=== PATIENT | female | born 1985 | race Caucasian/White ===

== ENCOUNTER → 2017-07-06 | Outpatient (CLI) | payer OTHER ==
[2017-07-06 11:03] LABS: URINE APPEARANCE CLEAR (CLEAR); URINE BILIRUBIN NEG (NEG); URINE COLOR YELLOW; URINE NITRITE NEG (NEG); URINE SPECIFIC GRAVITY 1.015 (1.000-1.030); UROBILINOGEN NEG (NEG)
[2017-07-06 11:09] LABS: MANUAL MICROSCOPIC REQUIRED? NO; REVIEW REQ? NO
== END | disposition home or self-care (01) ==
LOC: C.LABSPEC 10:48
PROVIDERS: ATTEND Obstetrics & Gynecology
DX: O09.521 Supervision of elderly multigravida, first trimester (principal); Z3A.00 Weeks of gestation of pregnancy not specified

== ENCOUNTER → 2017-07-11 | Outpatient (CLI) | payer OTHER | LOC: C.PAPS 16:20 | PROVIDERS: ATTEND Obstetrics & Gynecology | DX: O09.521 Supervision of elderly multigravida, first trimester (principal); Z3A.00 Weeks of gestation of pregnancy not specified ==

== ENCOUNTER → 2017-07-11 | Outpatient (CLI) | payer OTHER ==
[2017-07-14 01:39] LABS: CHLAMYDIA TRACH RNA*** NOT DETECTED (NOT DETECTED); GC (NEIS GONORRHOEAE)RNA** NOT DETECTED (NOT DETECTED)
== END ==
LOC: C.LABSPEC 15:57
PROVIDERS: ATTEND Obstetrics & Gynecology
DX: O09.521 Supervision of elderly multigravida, first trimester (principal); Z3A.00 Weeks of gestation of pregnancy not specified

== ENCOUNTER → 2017-07-13 | Outpatient (CLI) | payer OTHER ==
[2017-07-13 15:27] LABS: BASO % 0.3 %; BASO ABS # 0.03 K/uL (0-0.2); COMPLETE YES; EOS % 0.6 %; HEMATOCRIT 36.6 % (37-47); IG% 0.2 %; LYMPH % 17.7 %; LYMPH ABS # 1.75 K/uL (1.2-3.4); MEAN CELL VOLUME 91.3 fL (80-100); MEAN CORPUSCULAR HEMOGLOBIN 31.4 pg (25-34); MEAN CORPUSCULAR HGB CONC 34.4 g/dl (32-36); MEAN PLATELET VOLUME 12.1 fL (7.4-10.4); MONO % 7.9 %; NEUT % 73.3 %; PLATELET COUNT 211 K/uL (130-400); RED BLOOD COUNT 4.01 M/uL (4.2-5.4)
== END | disposition home or self-care (01) ==
LOC: C.LAB1850 14:28
PROVIDERS: ATTEND Obstetrics & Gynecology
DX: O09.521 Supervision of elderly multigravida, first trimester (principal); Z3A.00 Weeks of gestation of pregnancy not specified

== ENCOUNTER → 2017-09-07 | Outpatient (CLI) | payer OTHER ==
[2017-09-07 13:47] LABS: GTGD 50 Grams
== END | disposition home or self-care (01) ==
LOC: C.LAB1850 12:02
PROVIDERS: ATTEND Obstetrics & Gynecology
DX: O09.522 Supervision of elderly multigravida, second trimester (principal)

== ENCOUNTER → 2017-11-29 | Outpatient (CLI) | payer OTHER ==
[2017-11-29 12:21] LABS: HEMATOCRIT 32.2 % (37-47); HEMOGLOBIN 10.5 g/dL (12.0-16.0)
== END | disposition home or self-care (01) ==
LOC: C.LAB1850 09:55
PROVIDERS: ATTEND Obstetrics & Gynecology
DX: Z34.83 Encounter for supervision of other normal pregnancy, third trimester (principal)

== ENCOUNTER 2018-01-23 19:21 | Outpatient (CLI) | payer OTHER ==
[~2018-01-23] VITALS: Ht 162.6 cm; Wt 89.0 kg
[2018-01-23 20:34] VITALS: Ht 162.6 cm; Wt 89.0 kg
== END 2018-01-23 21:01 | disposition home or self-care (01) ==
LOC: C.OPB 19:21 → C.LD 19:21 → C.OPB 21:01
PROVIDERS: ATTEND Obstetrics & Gynecology
DX: O09.523 Supervision of elderly multigravida, third trimester (principal); Z3A.36 36 weeks gestation of pregnancy

== ENCOUNTER 2018-01-28 10:03 | Outpatient (CLI) | payer OTHER | END 2018-01-28 11:18 | disposition home or self-care (01) | LOC: C.OPB 10:03 → C.LD 10:04 → C.OPB 11:18 | PROVIDERS: ATTEND Obstetrics & Gynecology | DX: O36.8130 Decreased fetal movements, third trimester, not applicable or unspecified (principal); Z3A.37 37 weeks gestation of pregnancy ==

== ENCOUNTER 2018-02-07 22:13 | Inpatient (IN) | payer OTHER ==
[~2018-02-07] VITALS: Ht 160 cm; Wt 92.7 kg
[2018-02-07] MEDS ORDERED: LACTATED RINGER'S 1000ML 1,000 ML IV SCH (22:49)
[2018-02-07] MEDS ORDERED: LACTATED RINGER'S 1000ML 1,000 ML IV PRN (22:49)
[2018-02-07] MEDS ORDERED: EpHEDrine SULFATE INJ 50 MG/ML AMP ONE (23:14)
[2018-02-07] MEDS ORDERED: BUPIVACAINE 0.25% 30 ML VIAL ONE (23:14)
[2018-02-07] MEDS ORDERED: FENTANYL CITRATE INJ 50 MCG/1 ML 2 ML VIAL ONE ×2 (23:15→23:50)
[2018-02-07] MEDS ORDERED: FENTANYL 2MCG/ML ROPIV 1.25MG/ML 100ML BAG ONE (23:15)
[2018-02-07 23:27] LABS: HEMATOCRIT 29.8 % (37-47); HEMOGLOBIN 9.8 g/dL (12.0-16.0); MEAN CELL VOLUME 86.9 fL (80-100); MEAN CORPUSCULAR HEMOGLOBIN 28.6 pg (25-34); MEAN CORPUSCULAR HGB CONC 32.9 g/dl (32-36); MEAN PLATELET VOLUME 12.3 fL (7.4-10.4); PLATELET COUNT 157 K/uL (130-400); RED CELL DISTRIBUTION WIDTH CV 15.2 % (11.5-14.5); RED CELL DISTRIBUTION WIDTH SD 47.5 fL (36.4-46.3); WHITE BLOOD COUNT 10.03 K/uL (4.8-10.8)
[2018-02-07 23:38] VITALS: Ht 160 cm; Wt 92.7 kg
[2018-02-07] MEDS ORDERED: PRENTAB26 PO (23:38)
[2018-02-08] MEDS ORDERED: NALOXONE HCL INJ 1 MG in SODIUM CHLORIDE 0.9% 1000ML 1,000 ML IV PRN (00:44)
[2018-02-08] MEDS ORDERED: LACTATED RINGER'S 1000ML 500 ML IV PRN ×2 (00:44→01:14)
[2018-02-08] MEDS ORDERED: ONDANSETRON INJ 2 MG/ML 2 ML VIAL IV PRN (00:45)
[2018-02-08] MEDS ORDERED: NALOXONE HCL INJ 0.4 MG/1 ML VIAL/CARP IV PRN (00:45)
[2018-02-08] MEDS ORDERED: NALBUPHINE HCL INJ 10 MG/ML AMP IV PRN (00:45)
[2018-02-08] MEDS ORDERED: DiphenhydrAMINE HCL 50 MG/ML VIAL IV PRN (00:45)
[2018-02-08] MEDS ORDERED: EpHEDrine SULFATE INJ 50 MG/ML AMP IV PRN (00:45)
[2018-02-08] MEDS ORDERED: FENTANYL 2MCG/ML ROPIV 1.25MG/ML 100ML BAG EPI PRN (00:45)
[2018-02-08] MEDS ORDERED: FENTANYL CITRATE INJ 50 MCG/1 ML 2 ML VIAL XX ONE (01:00)
[2018-02-08] MEDS ORDERED: OXYTOCIN 30 UNITS/500ML NSS IV PRN ×2 (01:15→05:15)
[2018-02-08] MEDS ORDERED: SUPERCREAM 0.870 % 15GM JAR EXT PRN (05:15)
[2018-02-08] MEDS ORDERED: HYDROCORTISONE ACETATE 25 MG SUPP PR PRN (05:15)
[2018-02-08] MEDS ORDERED: OXYCODONE/ACETAMINOPHEN 5-325 TAB PO PRN (05:15)
[2018-02-08] MEDS ORDERED: BENZOCAINE 20% AER SPR 82.5 GM CAN EXT PRN (05:15)
[2018-02-08] MEDS ORDERED: ACETAMINOPHEN 325 MG TAB PO PRN (05:15)
[2018-02-08] MEDS ORDERED: DIPHTHERIA/TETANUS/PERTUSSIS 0.5 ML SYR/VIAL IM. ONE (05:15)
[2018-02-08] MEDS ORDERED: LANOLIN OINT EXT PRN (05:15)
[2018-02-08] MEDS ORDERED: OXYTOCIN INJ 20 UNITS in LACTATED RINGER'S 1000ML 1,000 ML IV SCH (06:00)
--- NOTE | 2018-02-08 06:58 | DELIVERY SUMMARY ---
DATE OF OPERATION: 02/08/2018 The patient dilated to complete and pushed to deliver a viable male , Apgars 7 and 8 via over second degree perineal laceration. With delivery of the cephalic, the anterior shoulder was delivered with gentle downward traction after a loose nuchal cord was reduced; when reducing the cord it sheared and . The fetus was then rapidly delivered. The cord was clamped at the umbilicus as well as at the remaining attachment to the placenta. The was stimulated and handed off to the awaiting pot reliner. Blood for cord collection was obtained in the usual fashion for the patient's personal use. The placenta was delivered spontaneously and intact 3-vessel cord. Hemostasis achieved with dilute Pitocin and uterine massage. Laceration repaired in usual fashion using 3-0 Vicryl. EBL 300 mL. Mother and baby stable in recovery. I attest to the content of the Intraoperative Record and any orders documented therein. Any exceptions are noted below. MTDD
[2018-02-08] MEDS: IBUPROFEN 600 MG TAB PO PRN ×3 (07:14→22:58)
--- NOTE | 2018-02-08 07:29 | Anesthesia Procedure Note ---
Anesthesia Epidural Removal Nt Date & Time February 08, 2018 at 07:29 Vital Signs Pain Intensity: 2.0 Notes Mental Status: alert / awake / arousable, participated in evaluation Nausea / Vomiting: adequately controlled Pain: adequately controlled Airway Patency, RR, SpO2: stable & adequate BP & HR: stable & adequate Hydration State: stable & adequate Neuraxial Anesthesia: was administered Anesthetic Complications: no major complications apparent, pt satisfied with anesthetic care Epidural: removed without complications, with tip intact
[2018-02-08 09:20] VITALS: BP 110/65; PULSE 82; TEMP 36.6
[2018-02-08 12:30] VITALS: BP 133/78; PULSE 83; TEMP 36.5
[2018-02-08] MEDS: DOCUSATE SODIUM 100 MG CAP PO SCH ×2 (12:51→19:28)
[2018-02-08] MEDS ORDERED: RANITIDINE HCL 150 MG TAB PO ONE (15:45)
[2018-02-08 16:01] VITALS: BP 121/82; PULSE 90; TEMP 36.6
[2018-02-08 16:08] VITALS: BP 121/82; PULSE 90; TEMP 36.6
[2018-02-08 19:45] VITALS: BP 125/84; PULSE 94; TEMP 36.7; O2SAT 98
[2018-02-08 23:25] VITALS: BP 124/84; PULSE 92; TEMP 36.7; O2SAT 96
[2018-02-09 03:40] VITALS: BP 122/83; PULSE 85; TEMP 36.6; O2SAT 97
--- NOTE | 2018-02-09 06:19 | Progress Note ---
Subjective February 09, 2018. Subjective conversation w/ patient, physical exam Ambulation: ambulating normally Voiding: no voiding problems Passing Gas: Yes Diet Tolerance: Regular Diet Lochia: Large Feeding Type: Breast Feeding Review of Systems Constitutional: No problem reported Respiratory: No problem reported Cardiac: No problem reported Breast: No problem reported Abdomen: No problem reported Female : No problem reported Objective Vital Signs Date Time Temp Pulse Resp B/P (MAP) Pulse Ox O2 Delivery O2 Flow Rate FiO2 02/09/18 03:40 36.6 85 16 122/83 (96) 97 Room Air 02/08/18 23:25 96 Room Air 02/08/18 23:25 36.7 92 18 124/84 (97) 96 Room Air 02/08/18 19:45 36.7 94 18 125/84 (98) 98 Room Air 02/08/18 19:45 98 Room Air 02/08/18 16:08 36.6 90 16 121/82 (95) Room Air 02/08/18 16:01 Room Air 02/08/18 16:01 36.6 90 16 121/82 (95) Room Air 02/08/18 12:30 36.5 83 16 133/78 (96) Room Air 02/08/18 09:20 36.6 82 16 110/65 (80) Room Air 02/08/18 09:20 Room Air Physical Exam General Appearance: WELL-APPEARING, NO APPARENT DISTRESS Respiratory/Chest: no respiratory distress Cardiovascular: regular rate, rhythm Abdomen: non tender, soft Fundus: Firm Extremities: normal inspection Assessment and Plan Post- Day#: 1 Continue Routine Care: PPD#1, delivered early yesterday morning. She is asking to be discharged. Has had some episodes of heavier lochia, vitals have been stable, she is ambulating ok. Hgb on admission was 9.8. Today's PPD#1 Hgb is pending. Discussed that if hgb and symptoms ok, will be ok for discharge later today.
--- NOTE | 2018-02-09 06:20 | Discharge Instructions ---
Discharge Instructions Date of Service February 09, 2018. Admission Reason for Admission: Active Labor At Term Discharge Discharge Diagnosis / Problem: s/p vaginal delivery Discharge Goals Goal(s): Routine recovery after surgery Activity Recommendations Activity Limitations: per Instructions/Follow-up section . Instructions / Follow-Up Instructions / Follow-Up ACTIVITY RECOMMENDATIONS: * Gradual return to full activity over the next 2-3 weeks. * No lifting - nothing heavier than baby over the next 2-3 weeks. * Do not engage in vigorous exercise, sexual activity or sports until cleared by your physician. * Do not drive or operate any motorized equipment until cleared by your physician. * You may shower/bathe daily. MEDICATIONS: For discomfort or pain, you may use Acetaminophen (Tylenol), Ibuprofen (Advil), or Naproxen (Aleve) following the package directions. For constipation you may use Colace following the package directions. BREAST CARE: If you are not breast feeding: * Wear a supportive bra 24 hours a day for one to two weeks. * Avoid stimulating your breasts and nipples as much as possible during the first few weeks after delivery. * When taking a shower, have the warm water hit your back, not breasts. * When your breasts feel full, apply ice packs. Usually three to four times a day helps ease the discomfort. * Take a mild pain medication (Tylenol / Motrin) when you are uncomfortable. If breast feeding: * Use breast milk to lubricate nipples. Lansinoh cream may be used for sore nipples. You do not need to remove cream prior to breast feeding. If using a different brand of cream, check the label for directions regarding removal of cream prior to nursing. * Wear a supportive bra. * If having problems with breasts or breast feeding, call a digital marketing consultant or your health care provider. EPISIOTOMY CARE: After delivery, if you have an episiotomy (stitches), the following steps will ease discomfort and aid healing. * For the first 24 hours after delivery, place ice packs next to your episiotomy to help reduce swelling. * After the first 24 hour-period, sitz baths, either portable or in the tub, are suggested. A shower with a shower arm sprayed over the episiotomy may be comforting. * Isabel care should be done after each voiding and bowel movement. Squirt warm water from a plastic bottle over the perineum (region of the body between the anus and urinary opening) and pat dry. * Use Dermoplast to ease discomfort. Shake container. [place] directly over the episiotomy. Place a Tucks on a clean sanitary pad next to your episiotomy. SPECIAL CARE INSTRUCTIONS: When you are discharged from the hospital, it is important for you to follow the instructions listed below: * During the first week at home, you should be able to care for yourself and your baby. In addition, the usual light household activities are encouraged. * Limit your activities to the way you feel. Do not try to clean the house or move furniture. Be sensible. * If you actively engage in sports and have done so up until the time of your delivery, you may resume these activities as soon as you feel able. This may take up to one month or even longer. Use good judgment. * Continue to take your vitamins for at least six weeks after the of your baby. * Your diet need not be limited unless you were on a special diet before your delivery. Breast-feeding mothers need around 2500 calories per day and at least 64-80 ounces of fluid per day (8 to 10 glasses). * You should eat foods from the four major food groups. Crash diets or fad diets are to be avoided. Eating lean meats, fresh fruits and vegetables, low-fat dairy products, high fiber foods and a regular exercise program, will help you get back to your pre- weight without putting your health at risk. * Constipation is sometimes a problem after delivery. Take a mild laxative as needed. If breast feeding, Milk of Magnesia is acceptable to use. You may use a suppository or Fleets enema if no episiotomy. * A daily shower or tub bath is suggested. Be sure to thoroughly and gently dry the perineum. * A bloody vaginal discharge will usually continue until around four weeks post . A small amount of bleeding may continue for as long as six weeks. Vaginal discharge changes from the bright red bleeding after delivery to pink then brownish and finally yellowish-pink before becoming white and disappearing. * Bleeding may increase with activity. Your first period may come in 4-8 weeks. If you are breast feeding, your period may be delayed even longer. * [place] (sex) can begin whenever both you and your partner feel comfortable and do not have any form of genital infection. It is recommended that you wait at least six weeks for internal and external healing to occur. If you have questions, please talk to your health care practitioner. A condom should be used to prevent infection and . * Foreplay, gentle intercourse and lubrication is very important the first several times to prevent pain. A water-based lubricant such as K-Y jelly or Astroglide may be used. * If you have RH negative blood and your baby is RH positive, you will receive RHOGAM by injection prior to discharge. The nurse will give you a card to keep with you that has the date and place that you received RHOGAM after delivery. * During your care, you had a Rubella screen done to check for the presence of rubella antibodies in your blood. If your test was negative, you will receive a Rubella vaccine prior to discharge. This vaccine may cause a fever, soreness at the injection site and flu-like symptoms. If these symptoms persist, notify your health care practitioner. is not advised for one month after a Rubella vaccine. * Verbalizes understanding of car seat law as reviewed with patient nursing. * Car Seat hand-out given and reviewed with patient by nursing. * Shaken baby information reviewed with patient by nursing. Call you doctor if: * Heavy bleeding (saturating several pads an hour) or passing clots the size of your fist. * A fever >101 degrees F (38.3 degrees C) on two occasions four hours apart and /or chills. * Unusual pain in the pelvic or vaginal areas. * "Baby Blues" lasting longer than two weeks. If you have any questions or concerns, call your health care practitioner at . FOLLOW UP VISIT: * Please call the office at to schedule a 6 week examination. It is important you keep this appointment. It is important for you to make arrangements for either yearly or twice yearly check-ups thereafter. Current Hospital Diet Patient's current hospital diet: Regular OB Diet Discharge Diet Recommended Diet: Regular OB Diet Pending Studies Studies pending at discharge: no Medical Emergencies . Who to Call and When: Medical Emergencies: If at any time you feel your situation is an emergency, please call 911 immediately. . Non-Emergent Contact Non-Emergency issues call your: Primary Care Provider, Swing Manager . . "Provider Documentation" section prepared by Amparo Haile. .
[2018-02-09 08:00] VITALS: BP 132/90; PULSE 87; TEMP 36.6
--- NOTE | 2018-02-09 08:32 | Progress Note ---
Progress Note Date of Service February 09, 2018. Progress Note New complaint of left calf pain, has bilateral LE edema. +pedal pulses, negative Tad's. Will obtain doppler.
[2018-02-09] MEDS: DOCUSATE SODIUM 100 MG CAP PO SCH (08:37)
[2018-02-09] MEDS: IBUPROFEN 600 MG TAB PO PRN (08:37)
--- NOTE | 2018-02-09 10:32 | DIAGNOSTIC IMAGING REPORT ---
VENOUS DOPPLER LWR EXT BILA CLINICAL HISTORY: 32 years-old Female presenting with Left calf pain, s/p . TECHNIQUE: Real-time grayscale and color and spectral Doppler ultrasound imaging of the veins of the bilateral lower extremities was performed. Compression and augmentation were also utilized. COMPARISON: None. FINDINGS: Right: Common femoral vein: Patent. Greater saphenous vein: Patent. Deep femoral vein: Patent. Femoral vein: Patent. Popliteal vein: Patent. Calf veins: Patent. Left: Common femoral vein: Patent. Greater saphenous vein: Patent. Deep femoral vein: Patent. Femoral vein: Patent. Popliteal vein: Patent. Calf veins: Patent. Other: None. IMPRESSION: No evidence of deep venous thrombosis. Electronically signed by: Oliverio Trinh M.D. 02/09/2018 10:30 AM Dictated Date/Time: 02/09/2018 10:29 AM
[2018-02-09 11:31] LABS: HEMATOCRIT 29.2 % (37-47); HEMOGLOBIN 9.6 g/dL (12.0-16.0)
[2018-02-09 13:05] VITALS: BP_DIAS 90; PULSE 87; TEMP 36.6
--- NOTE | 2018-02-09 13:10 | Progress Note ---
Subjective February 09, 2018. Subjective review of studies Voiding: no voiding problems Objective Vital Signs Date Time Temp Pulse Resp B/P (MAP) Pulse Ox O2 Delivery O2 Flow Rate FiO2 02/09/18 08:00 Room Air 02/09/18 08:00 36.6 87 16 132/90 (104) 02/09/18 03:40 36.6 85 16 122/83 (96) 97 Room Air 02/08/18 23:25 96 Room Air 02/08/18 23:25 36.7 92 18 124/84 (97) 96 Room Air 02/08/18 19:45 36.7 94 18 125/84 (98) 98 Room Air 02/08/18 19:45 98 Room Air 02/08/18 16:08 36.6 90 16 121/82 (95) Room Air 02/08/18 16:01 Room Air 02/08/18 16:01 36.6 90 16 121/82 (95) Room Air Laboratory Results Last 24 Hours Test 02/09/18 11:22 Hemoglobin 9.6 g/dL Hematocrit 29.2 % Assessment and Plan Post- Day#: 2 Continue Routine Care: - Doppler study negative' - OK for d/c
== END 2018-02-09 15:13 | disposition home or self-care (01) | DRG 775 ==
LOC: C.OPB 22:13 → C.LD 22:13 → C.OPB 22:50 → C.OBG 02-08 09:30
PROVIDERS: ADMIT Obstetrics & Gynecology; ATTEND Obstetrics & Gynecology
PROC: 0KQM0ZZ Repair Perineum Muscle, Open Approach (ICD-10-PCS; principal; 2018-02-08)
PROC: 10E0XZZ Delivery of Products of Conception, External Approach (ICD-10-PCS; principal; 2018-02-08)
DX: O70.1 Second degree perineal laceration during delivery (principal); O69.81X0 Labor and delivery complicated by cord around neck, without compression, not applicable or unspecified; Z37.0 Single live birth; Z3A.38 38 weeks gestation of pregnancy

== ENCOUNTER 2020-02-19 04:52 | Inpatient (IN) ==
[2020-02-19] MEDS ORDERED: OXYTOCIN 30 UNITS/500 ML BAG IV PRN ×2 (05:10→11:35)
[2020-02-19] MEDS: LACTATED RINGER'S 1,000 ML IV PRN ×2 (05:16→06:32)
[2020-02-19] MEDS ORDERED: ALBUTEROL HFA 8 GM INHALER INH PRN (05:16)
--- NOTE | 2020-02-19 05:16 | History & Physical Report ---
Date of Service February 19, 2020 Assessment & Plan (1) Normal labor: IUP in multiparous female in active labor requesting epidural analgesia see orders for further details anticipate vaginal History of Present Illness Primary Care Provider: Natasha Gallagher MD Patient is a 35 yo white female who presents at 39+ weeks with regular contractions. no SPROM . GBS negative, blood type O positive. complicated by prior thyroid cancer . Allergies Allergy/AdvReac Type Severity Reaction Status Date / Time pineapple Allergy Severe ANAPHYLAXIS Verified 02/13/20 10:02 latex Allergy Mild RASH Verified 02/13/20 10:02 No Known Drug Allergies Allergy Unknown Verified 02/13/20 10:02 Home Medications Home Medications Medication Instructions Recorded Confirmed Type albuterol sulfate 2 puff INHALATION Q4H PRN 05/24/19 02/13/20 History montelukast 10 mg tablet 10 mg PO QPM 07/07/19 02/13/20 History prenat.vits,odalis,[id number] 1 tab PO DAILY 07/07/19 02/13/20 History fluticasone propion-salmeterol INH 10/16/19 02/13/20 History levothyroxine 125 mcg tablet 125 mcg PO DAILY #90 tab 10/23/19 02/13/20 Rx Patient History Medical History Asthma (Chronic) Surgical History H/O partial thyroidectomy 09/2019 S/P wisdom tooth extraction Family History Father Heart disease Grandmother (Paternal) Diabetes Other No significant family history Social History Preferred Language: Georgian Communication Ability: Effective Gang Boss Required: No Beliefs That Will Affect Care: None marital status: marital status details: Luca Mckeon (33) [phone] Current Living Situation: Spouse and Family Current Living Situation Comment: lives with spouse, 2 daughters, dog current occupational status: student current occupation: student [employer] Feels Safe at Home: Yes Smoking Status: Never smoker Second Hand Exposure: No ; Hx Alcohol Use: No Hx Substance Use: No Review of Systems All systems reviewed & are unremarkable except as noted in HPI & below Physical Exam Constitutional: WD/WN, vitals as above Respiratory: normal respiratory effort, lungs clear to auscultation Cardiovascular: RRR, no murmur, no edema Gastrointestinal (Abdomen): normal bowel sounds, soft, nontender, no hepa tosplenomegaly Psychiatric: A+Ox3, euthymic affect Genitourinary: OB Exam Abdomen: + vertex and + regular contractions Manual OB Exam: + cervical dilation 4 cm, + cervical effacement 80% and + station -2 OB Exam Monitor Tracing: + external FHT monitor used, + external uterine monitor used, + category I and + normal FHT variability Code Status & VTE Plan VTE Prophylaxis Plan VTE Prophylaxis will be ordered: No Coding Level of Care Code None Diagnoses Normal labor O80; Z37.9
[2020-02-19 05:29] LABS: Hematocrit (blood only) 34.8 % (37-47); Hemoglobin 11.5 g/dL (12.0-16.0); Mean Corpuscular Hemoglobin 29.9 pg (25-34); Mean Corpuscular Volume 90.4 fL (80-100); Mean Platelet Volume 12.3 fL (7.4-10.4); Platelet Count 160 K/uL (130-400); RDW Coefficient of Variation 15.1 % (11.5-14.5); RDW Standard Deviation 49.7 fL (36.4-46.3); Red Blood Count 3.85 M/uL (4.2-5.4); White Blood Count 10.86 K/uL (4.8-10.8)
[2020-02-19] MEDS ORDERED: ePHEDrine sulfate 50 MG/ML AMP ONE (05:32)
[2020-02-19] MEDS ORDERED: fentaNYL 2MCG/ML ROPIV 1.25MG/ML 100 ML BAG EPI ONE (05:33)
[2020-02-19] MEDS ORDERED: BUPIVACAINE 0.25% 30 ML VIAL ONE (05:33)
[2020-02-19] MEDS ORDERED: fentaNYL citrate 100 MCG/2 ML VIAL ONE (05:33)
--- NOTE | 2020-02-19 06:04 | Anesthesiology Consultation ---
Date of Service February 19, 2020 Assessment & Plan Chart Review Chart Review: Patient NOT seen in Pre Admission Testing and Acceptable Risk for Labor Epidural Consults Requested none ASA ASA2 Proposed Anesthesia Anesthesia Type: Labor Epidural and CSE Risk / Benefits Reviewed With: PT / POA / Parent / Guardian, Accepts Plan and Informed Consent Obtained History Height/Weight Height: 5 ft 4.96 in Weight: 90.718 kg Allergies Allergy/AdvReac Type Severity Reaction Status Date / Time pineapple Allergy Severe ANAPHYLAXIS Verified 02/13/20 10:02 latex Allergy Mild RASH Verified 02/13/20 10:02 No Known Drug Allergies Allergy Unknown Verified 02/13/20 10:02 Medications Home Medications Medication Instructions Recorded Confirmed Last Taken albuterol sulfate 2 puff INHALATION Q4H PRN 05/24/19 02/13/20 05/23/19 montelukast 10 mg tablet 10 mg PO QPM 07/07/19 02/13/20 02/08/20 21:00 prenat.vits,odalis,[id number]-[id number] 1 tab PO DAILY 07/07/19 02/13/20 02/07/20 22:00 fluticasone propion-salmeterol INH 10/16/19 02/13/20 12/11/19 07:00 levothyroxine 125 mcg tablet 125 mcg PO DAILY #90 tab 10/23/19 02/13/20 02/08/20 08:00 Active Medications Generic Name Dose Route Start Last Admin Trade Name Freq PRN Reason Stop Dose Admin Lactated Ringer's 1,000 mls @ 125 mls/hr 02/19/20 05:10 02/19/20 05:16 Lr IV 02/21/20 05:09 999 mls/hr .Q8H PRN Administration L&D Protocol Protocol NPO Date Last Intake of Fluids: 02/19/20 Time Last Intake of Fluids: 03:00 Date Last Intake of Solids: 02/18/20 Time Last Intake of Solids: 18:00 Past Medical History Medical History Asthma (Chronic) Exercise / Class Metabolic Activity II 4-5 Yardwork/Stairs/Walk up hill Past Family History Family History Father Heart disease Grandmother (Paternal) Diabetes Other No significant family history Past Surgical History Surgical History H/O partial thyroidectomy 09/2019 S/P wisdom tooth extraction Past Anesthesia History No Hx of Anesthesia Complications and No Family Hx of Anesthesia Complications History of PONV No Hx of PONV and No Hx of Motion Sickness Social History Smoking Status: Never smoker Do You Dip or Chew Tobacco: No Hx Alcohol Use: No Hx Substance Use: No substance use type: does not use Physical Exam Vital Signs Last Vital Signs Temp 36.6 C 02/19/20 05:12 Pulse 92 H 02/19/20 06:00 Resp 18 02/19/20 05:13 BP 135/86 02/19/20 05:13 Pulse Ox 100 02/19/20 06:00 Constitutional + obese ENMT Mouth: no TMJ abnormality and no dentition abnormality Thyromental Distance: < 3.5 Finger Breadths Mallampati Class: II Neck normal visual inspection and trachea midline; neck extension not limited Respiratory normal respiratory effort Auscultation: lungs clear to auscultation bilaterally Cardiovascular Rate/Rhythm: regular rate and regular rhythm Heart Sounds: no murmur Vessels: no carotid bruit Musculoskeletal Spine: lumbar spine normal to inspection; normal cervical ROM Neurologic moves all extremities Motor/Sensory: no sensory deficit Psychiatric Orientation: alert and oriented x 3 Testing Laboratory Results 02/19/20 05:17
[2020-02-19] MEDS ORDERED: ONDANSETRON INJ 2 MG/ML 2 ML VIAL IV PRN (06:28)
[2020-02-19] MEDS ORDERED: ePHEDrine sulfate 50 MG/ML AMP IV PRN (06:28)
[2020-02-19] MEDS ORDERED: NALOXONE HCL 1 MG in SODIUM CHLORIDE 0.9% 1000ML 1,000 ML IV PRN (06:28)
[2020-02-19] MEDS ORDERED: PROMETHAZINE HCL 25 MG in SODIUM CHLORIDE 0.9% 50 ML IV PRN (06:28)
[2020-02-19] MEDS ORDERED: DiphenhydrAMINE HCL 50 MG/ML VIAL IV PRN (06:28)
[2020-02-19] MEDS ORDERED: NALBUPHINE HCL INJ 10 MG/ML AMP IV PRN (06:28)
[2020-02-19] MEDS ORDERED: NALOXONE HCL 0.4 MG/1 ML VIAL/CARP IV PRN (06:28)
[2020-02-19] MEDS ORDERED: fentaNYL 2MCG/ML ROPIV 1.25MG/ML 100 ML BAG EPI PRN (06:28)
[2020-02-19] MEDS: LEVOTHYROXINE SODIUM 125 MCG TABLET PO SCH (06:47)
--- NOTE | 2020-02-19 11:24 | Delivery Summary ---
Vaginal Delivery Summary Date of Service February 19, 2020 Vaginal Delivery Summary Vaginal Delivery Summary: Pre-delivery diagnoses: 35yo @ 39 6/7, spont labor, thyroid cancer, AMA, "atypical" results on Panorama Post-delivery diagnoses: same Procedure: spontaneous vaginal delivery Surgeon: Amparo Haile DO Complications: none Findings: Viable female . Apgars: 8/9. Weight pending, please see nursery records. Estimated blood loss: 300ml Description of delivery: The patient progressed to complete with epidural anesthesia. She then began to push. She spontaneously vaginally delivered a viable from the cephalic presentation. The head delivered in MEGAN position. The anterior shoulder delivered, followed by the posterior shoulder, followed by the body. No nuchal cord. The baby was placed on mother's abdomen and a spontaneous cry was heard. Delayed cord clamping was employed, and the cord was doubly clamped and cut. Cord blood was obtained. The placenta was delivered spontaneously intact with a 3-vessel cord. The uterus and vagina were swept of clots and debris. IV pitocin was given. The uterus became firm. The cervix, vagina, and perineum were inspected and a small first degree perineal laceration was noted. Did not require repair, was hemostatic. Patient agreeable. Excellent hemostasis was observed. The mother and baby are recovering in stable and good condition in the room. Sponge and instrument counts were correct x 2. DO DEANA Acharya
[2020-02-19] MEDS ORDERED: bisacodyL 10 MG SUPP PR PRN (11:35)
[2020-02-19] MEDS ORDERED: BENZOCAINE 20% AER SPR 82.5 GM CAN EXT PRN (11:35)
[2020-02-19] MEDS ORDERED: DIPHTHERIA/TETANUS/PERTUSSIS 0.5 ML SYR/VIAL IM ONE (11:35)
[2020-02-19] MEDS ORDERED: ACETAMINOPHEN 325 MG TAB PO PRN (11:35)
[2020-02-19] MEDS ORDERED: HYDROCORTISONE ACETATE 25 MG SUPP PR PRN (11:35)
[2020-02-19] MEDS ORDERED: SUPERCREAM 0.870% 15 GM JAR EXT PRN (11:35)
--- NOTE | 2020-02-19 13:23 | Anesthesia Procedure Note ---
Date of Service February 19, 2020 Anesthesia Post Epidural Note Vital Signs Vital Signs: Temp Pulse Resp BP Pulse Ox 37.0 C 90 18 128/72 100 02/19/20 09:26 02/19/20 12:56 02/19/20 12:25 02/19/20 12:56 02/19/20 11:15 Notes Mental Status: alert / awake / arousable and participated in evaluation Nausea / Vomiting: adequately controlled Pain: adequately controlled Airway Patency, RR, SpO2: stable & adequate BP & HR: stable & adequate Hydration State: stable & adequate Neuraxial Anesthesia: was administered and sensory block resolved Anesthetic Complications: no major complications apparent Epidural: Removed without complications and With tip intact
[2020-02-19] MEDS: IBUPROFEN 600 MG TAB PO PRN ×3 (13:30→22:57)
[2020-02-19] MEDS: DOCUSATE SODIUM 100 MG CAP PO SCH (21:09)
[2020-02-19] MEDS: MONTELUKAST SODIUM 10 MG TABLET PO SCH (21:09)
[2020-02-19] MEDS ORDERED: SIMETHICONE 80 MG CHEW PO PRN (21:18)
--- NOTE | 2020-02-20 06:21 | Obstetrical Progress Note ---
Date of Service February 20, 2020 Assessment & Plan (1) Status post vaginal delivery: Nel is a 35 yo on PPD1 after at 39w - GBS -, Blood Type O+, Rubella immune -Vitals reviewed and WNL -patient is doing clinically well Pending baby's status, patient suitable for discharge today. - After discharge will have [address] Haile. Admission and Anticipated Discharge Date Admission Date: February 19, 2020 Supervising Physician Co-Signing Physician Notes Resident Physician Supervision Note: I was present with Dr. Carrillo during the history and exam. I discussed the case with the resident and agree with the findings and plan as documented in the note. Any exceptions or clarifications are listed here: PPD#1 doing well. Would like discharge home. Documented By: Amparo Haile, Subjective Ambulation: ambulating normally Voiding: no voiding problems Passing Gas:: Yes Diet Tolerance:: regular diet Lochia:: Small Feeding Type:: breast feeding Review of Systems Constitutional: no fever, no chills and no sweats Eyes: no worsening vision Respiratory: no cough and no dyspnea Cardiovascular: no chest pain, no palpitations, no edema and no calf pain Gastrointestinal: no nausea and no vomiting Genitourinary: no dysuria and no urinary frequency Neurologic: no headache(s) Physical Exam Constitutional: WD/WN, vitals as above no acute distress Respiratory: normal respiratory effort, lungs clear to auscultation does not use accessory muscles Auscultation: no crackles, no rales, no rhonchi, no wheezes and no pleural rub Cardiovascular: Rate/Rhythm: regular rate and regular rhythm Heart Sounds: normal S1 and normal S2; no gallop, no murmur and no cardiac rub Extremities: no calf tenderness and no pedal edema Gastrointestinal (Abdomen): Inspection/Auscultation: normal bowel sounds; abdomen not distended Percussion/Palpation: abdomen soft Genitourinary: Uterus: fundus firm, palpable 1 cm below the umbilicus Results & Data ([facility]) Vital Signs (Past 12 Hours) Vital Signs Temp Pulse Resp BP 02/20/20 03:35 36.7 C 76 16 103/69 02/19/20 23:05 36.9 C 87 18 98/63 L 02/19/20 19:50 36.7 C 95 H 18 112/69 Resident Activity Tracking Resident Involvement: Resident Care Provided Care Provided: OB Delivery
[2020-02-20] MEDS: LEVOTHYROXINE SODIUM 125 MCG TABLET PO SCH (06:34)
[2020-02-20 06:36] LABS: Hemoglobin 9.2 g/dL (12.0-16.0); Mean Corpuscular Hemoglobin 30.1 pg (25-34); Mean Corpuscular Hgb Conc 32.9 g/dL (32-36); Mean Corpuscular Volume 91.5 fL (80-100); Mean Platelet Volume 12.6 fL (7.4-10.4); Platelet Count 133 K/uL (130-400); RDW Coefficient of Variation 15.5 % (11.5-14.5); Red Blood Count 3.06 M/uL (4.2-5.4); White Blood Count 9.79 K/uL (4.8-10.8)
[2020-02-20] MEDS: DOCUSATE SODIUM 100 MG CAP PO SCH ×2 (08:44→21:00)
[2020-02-20] MEDS: PRENATAL VITAMIN 1 TAB PO SCH (08:44)
[2020-02-20] MEDS: FERROUS SULFATE 325 MG TAB PO SCH (08:44)
[2020-02-20] MEDS: IBUPROFEN 600 MG TAB PO PRN (19:39)
[2020-02-20] MEDS ORDERED: bisacodyL 5 MG TABEC PO SCH (20:00)
[2020-02-20] MEDS: MONTELUKAST SODIUM 10 MG TABLET PO SCH (21:00)
[2020-02-21] MEDS: LEVOTHYROXINE SODIUM 125 MCG TABLET PO SCH (06:28)
[2020-02-21 06:36] LABS: Hematocrit (blood only) 29.9 % (37-47); Hemoglobin 9.6 g/dL (12.0-16.0)
--- NOTE | 2020-02-21 07:41 | Obstetrical Progress Note ---
Date of Service February 21, 2020 Assessment & Plan (1) Status post vaginal delivery: - doing well - desires d/c - instructions given - f/u in 6 weeks Subjective Ambulation: ambulating normally Voiding: no voiding problems Physical Exam Constitutional WD/WN, vitals as above Gastrointestinal (Abdomen) Fundus firm below umbilicus Musculoskeletal No deep calf tenderness Results & Data Vital Signs (Past 12 Hours) Vital Signs Temp Pulse Resp BP Pulse Ox 02/20/20 22:50 98.2 F 89 18 125/74 94 02/20/20 19:45 98.4 F 95 H 18 133/75 96
[2020-02-21] MEDS: DOCUSATE SODIUM 100 MG CAP PO SCH (08:25)
[2020-02-21] MEDS: PRENATAL VITAMIN 1 TAB PO SCH (08:25)
[2020-02-21] MEDS: FERROUS SULFATE 325 MG TAB PO SCH (08:25)
== END 2020-02-21 13:17 | disposition home or self-care (01) | DRG 807 ==
LOC: OPB 04:52 → 4S1 04:53 → 4S2 13:55